=== PATIENT | female | born 1960 | race Caucasian/White ===

== ENCOUNTER 2019-12-22 16:21 | Outpatient (CLI) | payer OTHER, SELFPAY ==
--- NOTE | ~2019-12-22 | XR_ITS ---
EXAMINATION: XR ribs LT 2V w CXR 2V DATE: 12/22/2019 16:51 INDICATION: Pleurodynia. Shortness of breath. Mid left rib pain. TECHNIQUE: PA and lateral views of the chest and 3 views of the left ribs were obtained. COMPARISON: None FINDINGS: No rib fractures identified. Mild linear bibasilar atelectasis at the bilateral costophrenic angles. No pulmonary edema, pleural effusion or pneumothorax. Mild thoracolumbar dextrocurvature with mild sp ondylosis. IMPRESSION: 1. No rib fractures identified. 2. Mild bibasilar atelectasis. Reviewed, dictated and finalized at location A.
== END 2019-12-22 16:22 | disposition home or self-care (01) ==
PROVIDERS: PCP Family Medicine; Visit Provider Nurse Practitioner
DX: R07.81 Pleurodynia (principal); R91.8 Other nonspecific abnormal finding of lung field
CPT/HCPCS: 71046; 71100

== ENCOUNTER → 2020-08-08 01:01 | Outpatient (CLI) | payer OTHER, SELFPAY ==
[2020-08-08 18:48] LABS: SARS-CoV-2 RNA PCR Negative
== END ==
PROVIDERS: PCP Family Medicine; Visit Provider Internal Medicine Gastroenterology
DX: Z01.812 Encounter for preprocedural laboratory examination (principal); Z20.822 Contact with and (suspected) exposure to COVID-19
CPT/HCPCS: C9803; U0003; U0005

== ENCOUNTER 2020-08-11 01:48 | Day surgery (SDC) | payer OTHER, SELFPAY ==
[2020-08-02 13:50] VITALS: BMI 26.3
[2020-08-11 06:30] VITALS: BP 124/80; PULSE 81; RESP 18; TEMP 36.2; O2SAT 99; BMI 25.5
[2020-08-11] MEDS: LACTATED RINGERS 1,000 ML 150 ML IV CONT (06:36)
--- NOTE | 2020-08-11 07:17 | WPDANESEPPF ---
Anes - Initial Pre Proc Eval Procedure: Operation Date: 08/11/20 07:30 Proposed Procedures p Screening Colonoscopy - Dave Conti DO Date/Time: 08/11/20 07:17 Surgeon: Dave Conti DO Pre Op Diagnosis: hx of colon polyps Patient Data Age: 59 Gender: F Height: 5 ft 3 in Weight: 65.5 kg Last Vital Signs Temp 97.2 F L 08/11/20 06:30 Pulse 81 08/11/20 06:30 Resp 18 08/11/20 06:30 BP 124/80 08/11/20 06:30 Pulse Ox 99 08/11/20 06:30 Allergies Allergy/AdvReac Type Severity Reaction Status Date / Time codeine AdvReac Unknown Unknown Verified 08/11/20 06:29 Honey Bee Allergy Unknown REDNESS Uncoded 08/02/20 13:44 AND SWELLING/ THROAT SWELLING Home Medications Medication Instructions Recorded Confirmed Type cetirizine 10 mg tablet 10 mg PO DAILY 05/25/19 08/02/20 History cholecalciferol (vitamin D3) 1,250 1,250 mcg PO DAILY 05/25/19 08/02/20 History mcg (50,000 unit) capsule fluoxetine 20 mg capsule 20 mg PO DAILY 05/25/19 08/02/20 History multivitamin 1 tablet PO DAILY 05/25/19 08/02/20 History glucos sul [id number] 2 cap PO DAILY 08/02/20 08/02/20 History [Glucosamine Chondroitin] Patient hx anesthesia problems: none Family hx anesthesia problems: none PMFSH Past Medical History Medical History Anxiety (~2014) Tinnitus, bilateral Wears hearing aids Surgical History Surgical History History of section 1990, 1991, 1994 History of partial hysterectomy (~1996) History of removal of both ovaries (~1999) Family History Family History Mother Smoking COPD (chronic obstructive pulmonary disease) Father Pneumonia Grandparent Cirrhosis of liver Grandparent Myocardial infarct Sibling Cirrhosis of liver Social History Social History Social History: 2 cups of coffee per day Smoking packs per day: 0.5 Smoking cigarettes per day: 10.0 Years smoked: 14 Smoking pack-years: 7.00 Smoking status: Former smoker Alcohol intake: current Drinks per week: 10 Substance use: never Substance use type: does not use Living arrangements: with family Spiritual care concerns: No Anes - Eval Final PreProcedure Day of Procedure 08/11/20 07:17 Patient weight: normal Heart: regular rate and rhythm Lungs: clear to auscultation Airway: Mallampati scale class II Neurological: alert and oriented Last oral intake: >/= 8 hours ASA classification: II Emergent: no Anesthetic plan: proceed Anesthesia type and monitoring: general GIVS and standard monitoring Informed Consent: The patient's anesthetic plan and its attendant risks and benefits were discussed with the patient/family/POA. Questions were solicited and answers provided to the satisfaction of the patient/family/POA.
--- NOTE | 2020-08-11 07:29 | WPDGICN ---
GI Consult Note Consult date/time: 08/11/20 07:29 HPI: Reason for visit is colonoscopy. This very pleasant lady Is seen in consultation request the primary physician. Impression: Screening and surveillance colonoscopy. The patient has a history adenomatous colon polyps. Anxiety. Tinnitus. Recommendation: Colonoscopy. History: This very pleasant lady is negative GI review of systems. She is here for screening and surveillance colonoscopy. She has a history adenomatous colon polyps. She does have complaints of occasional bloating. Physical examination: General: very pleasant patient in no acute distress. HEENT: Head was normocephalic sclerae is clear mouth without masses neck was supple. Heart: Rate rhythm regular without S3 or S4. Lungs: CTA. Abdomen: Soft with no guarding or rigidity. Bowel sounds were active. Neurologic: Cranial nerves 2 through 12 intact. No focal defects. No clonus. Musculoskeletal system: Revealed no joint tenderness or swelling no muscle atrophy. Extremities: Reveal no significant edema. Skin: Warm and dry with normal turgor. Mental status: intact. Patient is alert and oriented. Review of Systems Review of Systems: All systems reviewed & are unremarkable except as noted in HPI and below PMFSH Past Medical History Medical History (Updated 08/11/20 @ 07:29 by Dave Conti DO) Adenomatous colon polyp Anxiety (~2014) Tinnitus, bilateral Wears hearing aids Surgical History Surgical History History of section 1990, 1991, 1994 History of partial hysterectomy (~1996) History of removal of both ovaries (~1999) Family History Family History Mother Smoking COPD (chronic obstructive pulmonary disease) Father Pneumonia Grandparent Cirrhosis of liver Grandparent Myocardial infarct Sibling Cirrhosis of liver Social History Social History Social History: 2 cups of coffee per day Smoking packs per day: 0.5 Smoking cigarettes per day: 10.0 Years smoked: 14 Smoking pack-years: 7.00 Smoking status: Former smoker Alcohol intake: current Drinks per week: 10 Substance use: never Substance use type: does not use Living arrangements: with family Spiritual care concerns: No Meds Home Medications and Allergies Home Medications Medication Instructions Recorded Confirmed Type cetirizine 10 mg tablet 10 mg PO DAILY 05/25/19 08/02/20 History cholecalciferol (vitamin D3) 1,250 1,250 mcg PO DAILY 05/25/19 08/02/20 History mcg (50,000 unit) capsule fluoxetine 20 mg capsule 20 mg PO DAILY 05/25/19 08/02/20 History multivitamin 1 tablet PO DAILY 05/25/19 08/02/20 History glucos sul [id number] 2 cap PO DAILY 08/02/20 08/02/20 History [Glucosamine Chondroitin] Allergies Allergy/AdvReac Type Severity Reaction Status Date / Time codeine AdvReac Unknown Unknown Verified 08/11/20 06:29 Honey Bee Allergy Unknown REDNESS Uncoded 08/02/20 13:44 AND SWELLING/ THROAT SWELLING Vital Signs Vital Signs - 24 hr 08/11/20 06:30 Temperature 36.2 C L Pulse Rate 81 Respiratory Rate 18 Blood Pressure 124/80 Pulse Oximetry 99
[2020-08-11 07:55] VITALS: BP 100/61; PULSE 54; RESP 16; O2SAT 99
[2020-08-11 08:05] VITALS: BP 113/69; PULSE 53; RESP 16; O2SAT 100
[2020-08-11 08:15] VITALS: BP 120/71; PULSE 54; RESP 20; O2SAT 100
== END 2020-08-11 08:38 | disposition home or self-care (01) ==
PROVIDERS: PCP Family Medicine; Visit Provider Internal Medicine Gastroenterology
PROC: 0DJD8ZZ Inspection of Lower Intestinal Tract, Via Natural or Artificial Opening Endoscopic (ICD-10-PCS; CPT 45378; principal; 2020-08-11 07:30)
DX: Z12.11 Encounter for screening for malignant neoplasm of colon (principal); K57.30 Diverticulosis of large intestine without perforation or abscess without bleeding; Z86.010 Personal history of colon polyps; F41.9 Anxiety disorder, unspecified; Z87.891 Personal history of nicotine dependence
CPT/HCPCS: 45378; C9803; J2704; J7120; U0003; U0005

== ENCOUNTER → 2021-11-06 15:25 | Outpatient (CLI) | payer OTHER, SELFPAY ==
--- NOTE | ~2021-11-06 | XR_ITS ---
XR hand RT min 3V DATE: 11/06/2021 15:36 INDICATION: Localized swelling, mass, lump, right upper limb TECHNIQUE: 3 views COMPARISON: None FINDINGS: There is narrowing at some of the interphalangeal joints consistent with mild osteoarthriti s. No fracture or dislocation, periosteal reaction or bone destruction, subcutaneous emphysema or rad iopaque foreign body is noted. IMPRESSION: Mild osteoarthritis Reviewed, dictated and finalized at location A. IMPRESSION: Mild osteoarthritis
== END ==
PROVIDERS: PCP Family Medicine; Visit Provider Family Medicine
DX: M19.041 Primary osteoarthritis, right hand (principal)
CPT/HCPCS: 73130